=== PATIENT | female | born 1965 | race Caucasian/White ===

== ENCOUNTER 2016-11-20 14:09 | Emergency (ER) | payer OTHER | END 2016-11-20 16:25 | disposition home or self-care (01) | LOC: ER1 14:09 | DX: G89.29 Other chronic pain (principal); M54.6 Pain in thoracic spine; F17.200 Nicotine dependence, unspecified, uncomplicated; Y04.2XXA Assault by strike against or bumped into by another person, initial encounter; Y07.410 Brother, perpetrator of maltreatment and neglect; Y92.009 Unspecified place in unspecified non-institutional (private) residence as the place of occurrence of the external cause | CPT/HCPCS: 71010; 72070; 99284 ==

== ENCOUNTER 2017-05-07 18:38 | Emergency (ER) | payer OTHER | END 2017-05-07 20:28 | disposition home or self-care (01) | LOC: ER1 18:38 | DX: S90.31XA Contusion of right foot, initial encounter (principal); F17.210 Nicotine dependence, cigarettes, uncomplicated; Z88.6 Allergy status to analgesic agent; W22.8XXA Striking against or struck by other objects, initial encounter; Y92.009 Unspecified place in unspecified non-institutional (private) residence as the place of occurrence of the external cause | CPT/HCPCS: 73630; 99283; J1885 ==